=== PATIENT | male | born 1975 | race Caucasian/White ===

== ENCOUNTER 2022-06-17 07:36 | Emergency (ER) | payer OTHER ==
[~2022-06-17] VITALS: Ht 180.3 cm; Wt 104.3 kg
[2022-06-17 07:36] VITALS: BP_SYST 142
--- NOTE | 2022-06-17 07:36 | NUR ---
BROUGHT BACK TO BED #8 AND TRIAGED. REPORT GIVEN TO David
--- NOTE | 2022-06-17 07:58 | NUR ---
lab @ bedside. received in [facility] for difficulty swallowing since last week. denies cough, sorethroat,n,v, sob, drooling. no swelling noted. aao x 4. resp even and nonlabored. vss. ambulatory
[2022-06-17 08:26] LABS: ANION GAP 7 (5-15); CALCIUM 8.8 mg/dL (8.4-11.0); CHLORIDE 104 mmol/L (98-107); CREATININE 1.05 mg/dL (0.55-1.30); GLUCOSE 112 mg/dL (70-99); POTASSIUM 3.9 mmol/L (3.5-5.1); UREA NITROGEN, BLOOD 9 mg/dL (8-21)
[2022-06-17 08:32] LABS: GFR AFRICAN AMERICAN 98 mL/min (>90)
[2022-06-17 08:36] LABS: ALANINE AMINOTRANSFERASE 23 U/L (12-78); ALBUMIN 3.8 g/dL (3.4-4.8); ASPARTATE AMINOTRANSFERASE 16 U/L (10-37); TOTAL BILIRUBIN 0.8 mg/dL (0.0-1.0)
[2022-06-17 08:37] LABS: BASOPHILS % (AUTO) 0.4 % (0.0-2.0); EOSINOPHILS % (AUTO) 0.2 % (0.0-4.0); HEMATOCRIT 48.7 % (36-54); LYMPHOCYTES # (AUTO) 1.5 K/uL (1.0-5.5); LYMPHOCYTES % (AUTO) 28.7 % (20.5-51.5); MEAN CORPUSCULAR VOLUME 88 fL (79.0-98.0); MONOCYTES # (AUTO) 0.4 K/uL (0.0-1.0); MONOCYTES % (AUTO) 7.4 % (1.7-9.3); NEUTROPHILS # (AUTO) 3.4 K/uL (1.8-7.7); NEUTROPHILS % (AUTO) 63.3 % (40.0-70.0); PLATELET COUNT (AUTO) 197 K/uL (130-430); RED BLOOD CELL COUNT(AUTO) 5.52 MIL/uL (4.2-6.2); RED CELL DISTRIBUTION WIDTH 14.4 % (9.0-15.0); WHITE BLOOD COUNT (AUTO) 5.4 K/uL (4.8-10.8)
[2022-06-17] MEDS ORDERED: OMEP20CA15 PO (09:08)
[2022-06-17 09:14] VITALS: BP_SYST 128
--- NOTE | 2022-06-17 09:15 | NUR ---
Patient given written and verbal discharge instructions and verbalizes understanding. ER MD discussed with patient the results and treatment provided. Patient in stable condition. ID arm band removed. Rx of given. Patient educated on pain management and to follow up with PMD. Pain Scale . Opportunity for questions provided and answered. Medication side effect fact sheet provided. aao x4. resp even and nonlabored. vss. ambulatory
== END 2022-06-17 09:13 | disposition home or self-care (01) ==
LOC: SED 07:36
DX: K21.9 Gastro-esophageal reflux disease without esophagitis (principal); J02.9 Acute pharyngitis, unspecified; Z79.899 Other long term (current) drug therapy
CPT/HCPCS: 36415; 71045; 80053; 84484; 85025; 99284